=== PATIENT | male | born 1980 | race African-American/Black ===

== ENCOUNTER 2016-12-31 16:10 | Emergency (ER) | payer SELFPAY ==
[2016-12-31 21:07] LABS: RED BLOOD COUNT 4.81 M/UL (4.20-5.50); WHITE BLOOD COUNT 6.7 K/UL (4.5-11.0)
[2016-12-31 21:27] LABS: BUN/CREATININE RATIO 10 (0-10)
== END 2017-01-01 02:10 ==
LOC: ER1 16:10
PROVIDERS: Student in an Organized Health Care Education/Training Program
DX: F23 Brief psychotic disorder (principal); F31.9 Bipolar disorder, unspecified; F41.9 Anxiety disorder, unspecified; F17.210 Nicotine dependence, cigarettes, uncomplicated; Z79.899 Other long term (current) drug therapy
CPT/HCPCS: 36415; 80053; 80307; 81001; 83735; 84443; 85025; 87086; 99285; G0480